=== PATIENT | male | born 1940 | race Caucasian/White ===

== ENCOUNTER 2025-04-22 18:37 | Inpatient (IN) | payer OTHER, SELFPAY ==
[2025-04-22 13:40] VITALS: BP 178/100
[2025-04-22 13:56] LABS: Hematocrit 42.3 % (39.0-52.0); Hemoglobin 15.2 g/dL (13.0-18.0); Mean Corp Hgb Conc. 35.9 g/dL (33.0-37.0); Mean Corpuscular Volume 84.3 fL (80.0-94.0); Nucleated Red Blood Cells % 0 % (-); Platelet Count 225 10^3/uL (130-400); Red Cell Dist. Width 12.2 % (11.5-14.5)
[2025-04-22 14:14] LABS: ALT (SGPT) 24 U/L (0-50); AST (SGOT) 30 U/L (17-59); Albumin 4.6 g/dl (3.5-5.0); Alkaline Phosphatase 80 U/L (38-126); Blood Urea Nitrogen 10 mg/dl (9-20); Calcium 9.4 mg/dl (8.4-10.2); Carbon Dioxide 22 mmol/L (22-30); Chloride 93 mmol/L (98-107); Glucose 131 mg/dl (70-99); Potassium 4.6 mmol/L (3.5-5.1); Sodium 122 mmol/L (135-145); Total Protein 6.9 g/dl (6.3-8.2); eGFR > 60.00
[2025-04-22 15:55] VITALS: BP 151/93
--- NOTE | 2025-04-22 16:45 | ED.GENMED ---
History of Present Illness
General
Chief Complaint: Abnormal Lab Value
Source: patient
Exam Limitations: none
Time Seen by Provider: 04/22/25 16:36
Nursing documentation reviewed up to this point in time: agreed with
History of Present Illness
History of Present Illness:
84-year-old male with history of HLD, appendectomy presents for low Sodium level found by PCP 2 days ago at his annual physical. He had no symptoms, it was repeated and he states it was '124.' Denies nausea, fatigue, muscle spasm headache.
Past History
Past History
ED Past Medical History: Hypercholesterolemia
ED Past Surgical History: Appendectomy
Review of Systems
Review of Systems
Allergies reviewed?: Yes
All Other Systems: ROS reviewed and negative except as documented in HPI and ROS
Phy Exam
Physical Exam
Physical Exam:
GENERAL: No acute distress. A&Ox3.
CONSTITUTIONAL: Afebrile.
EYES: clear, conjunctivae normal
ENMT: moist mucus membranes, Pharynx nl
RESPIRATORY: Regular respirations, nonlabored, lungs clear.
CARDIOVASCULAR: Regular rate and rhythm, no murmurs, no rubs.
GI: Soft, nontender, normal BS
MUSCULOSKELETAL: Moves with ease. Well perfused.
SKIN: Warm, dry, pink
PSYCH: Normal mood and affect. Well kept, interactive and appropriate
NEUROLOGIC: Awake, alert and oriented. No focal neurological deficits
Course
Orders/Labs/Results
Orders:
Orders
04/22/25 13:42
Electrocardiogram (*1) Urgent
Reason for Study: Chest Pain
EKG- Treatment ONCE
04/22/25 13:49
Complete Blood Count/With Diff Urgent
Comprehensive Metabolic Panel Urgent
Serum Osmolality Urgent
Comment: ADD ON
TSH Urgent
Comment: ADD ON
04/22/25 14:55
Urine Osmolality Random [Osmolality, Random Urine] Urgent
Date Specimen was Collected: 04/22/25
Time Specimen was Collected: 13:43
Urine Sodium Urgent
Date Specimen was Collected: 04/22/25
Time Specimen was Collected: 13:43
04/22/25 Dinner
Regular
At Your Request: Full Participation
Fluid Restriction: 1200 mL/day (40 oz)
04/22/25 16:44
Add On- LAB Urgent
Tests Added?: serum osmolality, TSH
04/22/25 16:59
NEPHROLOGY CONSULT Urgent
Consulting Provider: Emeka Fontana V.
Was physician already notified: Yes
Reason for consult: Hyponatremia
04/22/25 17:35
Admit/Transfer Patient As Directed
Co-Sign Provider:
Level of Care: Inpatient admission
Assign to:: Telemetry
Physician / Group: pola holley
Diagnosis: acute hyponatremia asympotmacic, etoh use disorder
Reason for Telemetry: Arrhythmia
Date to Stop Telemetry: 04/25/25
Time to Stop Telemetry: 11:00
Reason for Hospitalization: acute hyponatremia asympotmacic, etoh use disorder
Expected length of stay greater than two midnights?: Yes
ELOS- Estimated Length of Stay in days: 3
I certify the patient meets the requirements for IP care: Yes
Code Status As Directed
Resuscitation Status: Full Code
04/22/25 17:37
PRN Pain Medication Management As Directed
May give lesser potent ordered pain med per pt: Yes
preference::
Protocol:: Medication orders for pain may be administered in a
manner that supports deferring to patient preference
when the pt is:
- Requesting an ordered lesser potent pain medication.
Least to most potent pain medications are defined
as: acetaminophen < NSAID < tramadol < opioids
(morphine, oxycodone, hydromorphone).
- Requesting a lesser dose of the same medication IF
ORDERED.
- Requesting a less intrusive route of administration
if both routes are prescribed by the provider (PO <
IV).
04/22/25 18:54
0.9% Sodium Chloride [Nss (Preservative Free)] See Protocol IV PRN PRN
Bisacodyl [Dulcolax] 10 mg RECTAL U00TABH PRN
Docusate W/Senna [Senokot-S] 1 tablet PO BIDPRN PRN
Enoxaparin Sodium [Lovenox] 40 mg SC QPM
FOLic ACID [Folvite] 1 mg 0.9% Sodium Chloride 50 ml [Nss] 50 ml IV DAILYPRN
Lorazepam [Ativan] 1 mg IV Q1HPRN PRN
Lorazepam [Ativan] 1 mg PO Q2HPRN PRN
Lorazepam [Ativan] 2 mg IV Q1HPRN PRN
Polyethylene Glycol Powder [Miralax] 17 grams PO DAILYPRN PRN
04/22/25 18:54
Case Management Consult Once
Case Management Consult: Other
Comment: Substance abuse counseling
DIETARY IP CONSULT Routine
Reason for Consult: Nutrition support, possible refeeding guidelines
Urinalysis Routine
Urine Drug Abuse Screen Routine
Activity As Directed
Activity Level: As Tolerated
Intake/ Output As Directed
Frequency: Per unit guidelines
MSAS SCORE As Directed
MSAS Score 0-4: Repeat MSAS every 2 hours until 0-4 for three consecutive assessments, then every 4 hours x 48
hours.
MSAS Score 5-7: For MILD withdrawl symptoms. Repeat MSAS and RASS every 2 hours
MSAS Score 8-11: For MODERATE withdrawal symptoms. Repeat MSAS and RASS every 1 hour. Consider ICU or IMU
level of care.
MSAS Score > 11: For SEVERE withdrawal symptoms. Repeat MSAS and RASS every 1 hour. Notify provider, consider
ICU level of care.
MSAS Additional Instructions: If no improvement or no decrease in score from severe to moderate within 12
hours, consult psychiatry
MSAS Notify Provider: Notify provider if patient requires more than 10 mg of Lorazepam in eight hour period.
Vital Signs As Directed
Frequency: Per unit guidelines
Weight As Directed
Frequency: Daily
Pt Eval And Treat Routine
Activity Level: As Tolerated
DX Deep Vein Thrombosis Video Routine
04/22/25 20:07
PTT Urgent
Prothrombin Time Urgent
04/22/25 20:25
Alcohol Urgent
B-Hydroxybutyrate Urgent
GGTP Urgent
Magnesium Urgent
Phosphorus Urgent
04/23/25 00:00
Thiamine Injection 200 mg IV Q8
04/23/25 06:00
Basic Metabolic Panel IN AM
Comprehensive Metabolic Panel IN AM
04/23/25 08:00
Atorvastatin [Lipitor] 20 mg PO DAILY
FOLic ACID [Folvite] 1 mg PO DAILY
Hydrochlorothiazide [Oretic] 12.5 mg PO DAILY
Lisinopril [Zestril] 20 mg PO DAILY
04/24/25 06:00
Basic Metabolic Panel IN AM
Comprehensive Metabolic Panel IN AM
04/25/25 06:00
Basic Metabolic Panel IN AM
Comprehensive Metabolic Panel IN AM
04/25/25 11:00
DC Protocol for Telemetry ONCE
04/25/25 20:00
Thiamine HCl [Vitamin B1] 100 mg PO BID
Abnormal Lab Results
04/22/25 04/22/25
13:49 14:55
Absolute Lymphs (auto) 1.1 L 10^3/uL
(1.2-3.4)
Absolute Monos (auto) 0.8 H 10^3/uL
(0.1-0.6)
Lymphocytes % 14.1 L %
(20.5-51.1)
Monocytes % 10.1 H %
(1.7-9.3)
Sodium 122 L mmol/L
(135-145)
Chloride 93 L mmol/L
(98-107)
Glucose 131 H mg/dl
(70-99)
Serum Osmolality 261 L mOsm/kg
(275-300)
Urine Sodium 127 H mmol/L
(30-90)
04/22/25 13:49
04/22/25 13:49
Vital Signs
Initial and Last Documented VS:
Initial Vital Signs
Temp Pulse Resp BP Pulse Ox
97.7 F 91 16 178/100 97
04/22/25 13:40 04/22/25 13:40 04/22/25 13:40 04/22/25 13:40 04/22/25 13:40
Last Documented Vital Signs
Temp Pulse Resp BP Pulse Ox
98.8 F 78 12 159/90 99
04/22/25 23:00 04/22/25 23:00 04/22/25 23:00 04/22/25 23:00 04/22/25 23:00
MDM/Problems Addressed
MDM/Problems Addressed:
84-year-old male with history of HLD, appendectomy presents for low Sodium level found by PCP 2 days ago at his annual physical. He had no symptoms, it was repeated and he states it was '124.' Denies nausea, fatigue, muscle spasm headache.
CBC normal
Sodium 122, chloride 93 otherwise normal.
Urine osmolality is normal at 413. Urine 70 mL 127
Hospitalist and Nephrology notified of admission.
*Pulse Oximetry
SaO2: 98
Oxygen Mode of Delivery: Room air
Patient hypoxic: no
*EKG
EKG Intrepretation Date: 04/22/25
Interpretation: abnormal
Heart Rate: 104
Rate: tachycardiac
Rhythm: sinus
[place]: normal axis
Interval: normal interval
QRS Pattern: normal QRS
Ischemia: no ischemia
*Critical Care Note
Total Time (30-74mins, 75-104mins- exclusive of procedures): Not Applicable
ED Attending Note
-
Portions of this chart may have been created with voice recognition software.� Occasional wrong word or��sound alike� substitutions may have occurred due to the inherent limitations of voice recognition software.
Discharge Plan
Departure
Patient Disposition: Admit
Date of Disposition: 04/22/25
Time of Disposition: 17:04
Presentation/result/management discussed w/ accepting MD/DO: Hospitalist
Condition: Good
Discharge Problem:
Acute hyponatremia
Interventions
Interventions:
*General Assessment Last Done: 04/22/25 17:24
*Neglect/Abuse Screening Last Done: 04/22/25 13:40
*ED COVID-19 Vaccine History Last Done: 04/22/25 17:24
*ED Influenza Vaccine History Last Done: 04/22/25 17:24
[facility] Risk Assessment Tool Last Done: 04/22/25 17:24
*Risk Screen - Suicide (C-SSRS) Last Done: 04/22/25 13:40
*Nursing Disposition Last Done: 04/22/25 18:58
Discharge Date and Time
Discharge Date/Time: 04/22/25 18:59
--- NOTE | 2025-04-22 17:08 | HPS.HSE ---
Family Physician
-
Family Physician:
Chief Complaint
-
abdnormal sodium
History of Present Illness
84-year-old male who was at his PCP 2 days ago for annual physical was noted to have lab work with sodium of 124. Currently has sodium of 122 in ER. He denies headache, fatigue, blurred vision, nausea, vomiting, diarrhea, abdominal pain, chest
pain, palpitations, cough, shortness of breath, loss. The patient reports normally drinking 40 ounces of water daily however over the past days has doubled his intake to approximately 80 ounces a day. He also drinks daily wine 15 to 20 ounces and
3 to 4 glasses or approximately 7 ounces of scotch with water with last reading yesterday evening 04/21/2025. He states had increased consumption over the past 4 to 5 months due to the holidays and being 1 year. He has past medical history
of hyperlipidemia former cigar smoker stopped age 64, HTN.
Medical History
Past Medical History
Past Medical History: Reports Hypercholesterolemia and Other
Additional Past Medical History:
HTN
hyperlipidemia
former cigar smoker stopped age 64
alcohol use disorder
Past Surgical History: Reports Appendectomy
Social History
Tobacco: Former Smoker (stopped cigars age 64)
Alcohol: Daily (152-20 oz wine (3-4 glasses day ) or 7.5 ounces daily scotch)
Personal: (1 year)
Living: With Family (son)
Employment: Retired
Family History
Family History: Not pertinent
Allergies / Home Medications
Allergies reflects when Allergies were last updated in [facility].
Home Medications with original date entered in [facility]
Allergy/Medication List:
Allergies
Allergy/AdvReac Type Severity Reaction Status Date / Time
hayfever Allergy nasal Uncoded 04/22/25 13:39
symptoms
Home Medications
ascorbic acid (vitamin C) 250 mg tablet (Vitamin C) 250 mg PO DAILY 04/22/25
atorvastatin 20 mg tablet (Lipitor) 20 mg PO DAILY 04/22/25
glucosamine sulf dipot chlr,msm,chond 550 mg-C 30 mg-alexander 1 mg capsule (Glucosamine Chondroitin) 1 cap PO DAILY Supplement 04/22/25
hydrochlorothiazide 12.5 mg tablet 12.5 mg PO DAILY 04/22/25
lisinopril 20 mg tablet 20 mg PO DAILY 04/22/25
magnesium hydroxide 400 mg/5 mL oral suspension (Milk of Magnesia) 2,400 mg PO DAILYPRN PRN constipation 04/22/25
Review of Systems
-
History Source: Patient
A 12 point ROS was completed and negative except as noted: Yes
Constitutional: Denies Fever, Weight Loss, Fatigue or Chills
EENT: Denies Sore Throat or Runny Nose
Respiratory: Denies Cough or Trouble Breathing
Cardiac: Denies Chest Pain, Diaphoresis, Palpitations or Syncope
Abdomen/GI: Denies Abdominal Pain, Nausea, Vomiting or Diarrhea
: Denies Dysuria, Frequency, Flank Pain or Incontinence
Musculoskeletal: Denies Joint Pain or Edema
Skin: Denies Itching or Rash
Neurological: Denies Dizzy, Headache or Weakness
Endocrine: Reports No Symptoms
Hematologic/Lymphatic: Reports No Symptoms
Psych: Reports Calm
Physical Exam
Vital Signs
Vital Signs
Temp Pulse Resp BP Pulse Ox
97.9 F 82 16 151/93 98
04/22/25 15:55 04/22/25 15:55 04/22/25 13:40 04/22/25 15:55 04/22/25 16:49
Physical Exam
General: Comfortable and Conversant; No Pain, Fever or Chills
HEENT: NormoCephalic, Anicteric, Moist mucous membranes, PERRLA, [place] Conjunctivae and No Ptosis
Respiratory: Clear; No Wheezes, Rales or Rhonchi
Cardiac: S1/S2, Regular Rhythm and Peripheral Edema (trace ankle edema ); No Murmur, Rub or Gallop
Breast: Deferred by me
GI: Soft, Non Tender, Non Distended, Normal Bowel Sounds and No Hepatosplenomegaly
Rectal: Deferred by Provider
Musculoskeletal: No Clubbing, No Cyanosis, Edema, Left Lower Extremity (trace lower legs) and Edema, Right Lower Extremity (trace lower legs); No Edema, Left Upper Extremity or Edema, Right Upper Extremity
Skin: Warm and Dry; No Rash
Neuro: AO x 3, No Motor Deficits, Nonfocal/grossly intact, Cranial Nerves Intact and No Sensory Deficits; No Slurred Speech, Facial Droop or Tremors
Psych: Calm
Laboratory Results
-
04/22/25 13:49
04/22/25 13:49
Laboratory Results
Total Bilirubin 0.8 mg/dl (0.2-1.3) 04/22/25 13:49
AST 30 U/L (17-59) 04/22/25 13:49
ALT 24 U/L (0-50) 04/22/25 13:49
Alkaline Phosphatase 80 U/L (38-126) 04/22/25 13:49
Impression/Plan
-
Impression/plan:
Admit to TELE
#Acute hyponatremia�asymptomatic
- NA 122
- Check urine Osmo, urine NA, serum Osmo, TSH free T4 reflex
- Consult nephrology
- Fluid restrict
- Follow BMP
EKG: Sinus tach with PVCs 104 bpm, QTc B426 MS
Alcohol use disorder
- Drinks 15 to 20 ounces of daily wine and 3 to 4 glasses a day for 7 ounces of scotch daily
Reports over the past 4 to 5 months has doubled his intake due to being for 1 year and coming up around holidays
- Last drink was yesterday scotch evening 04/21/2025
-MSAS screen with protocol
- IV thiamine, IV folate
HTN
cont hctz 12.5 mg daily
cont lisinopril 20 mg daily
#HLD
cont lipitor 20 mg hs
#
constipation
cont laxatives prn
DVT prophylaxis
Subcu Lovenox
Full code
--- NOTE | 2025-04-22 17:44 | W.PN.UPDATE ---
Update Note
Progress Note Update
This note serves as an addendum to the H&P by fire adjuster NORRIS�
Naima DIETERICK
HPI�
84M - for 1 yr, Former smoker, SHXZ suggestive of ETOH use disorder
PHX of HLD
Seen at ER
- at PCP 2 days ago for annual physical was noted to have Na 124.
- Currently Na 122 in ER.
- reports normally drinking 40 ounces of water daily - however over the past days has doubled his intake to approximately 80 ounces a day
- also drinks daily wine 15 to 20 ounces and 3 to 4 glasses or approximately 7 ounces of scotch with water with last drinking yesterday evening 04/21/2025.
- increased ETOH consumption over the past 4 to 5 months due to the holidays and being 1 year.
ROS
denies headache, fatigue, blurred vision, nausea, vomiting, diarrhea, abdominal pain, chest pain, palpitations, cough, shortness of breath, loss. T
Relevant VS
Temp Pulse Resp BP Pulse Ox
97.9 F 98 14 151/93 100
04/22/25 15:55 04/22/25 17:26 04/22/25 17:26 04/22/25 15:55 04/22/25 17:26
PE
Gen: NAD , Non toxic
HEENT: anicteric, moist OM
Neck: supple
Lungs: CTA. No wheeze
Cor: RRR S1S2
Abdomen:�soft , NT, NG , NRT
ROUNDER HAND: AAO3, NFND
MS: no edema
Psych: appropriate
Relevant Data
04/22/25
13:49
WBC 7.5
Hgb 15.2
Plt Count 225
Sodium 122 L
Potassium 4.6
Chloride 93 L
Creatinine 0.8
eGFR > 60.00
Glucose 131 H
Serum Osmolality 261 L
TSH Pending
EKG: Sinus tach with PVCs 104 bpm, QTc B426 MS
NO Prior hospitalist admission:
ASSESSMENT & PLAN
Acute hypotonic hyponatremia � asymptomatic
DDX: Water excess, Potomania
- Low Ur Osm
- NA 122
- urine Osm, urine NA, serum Osmo, TSH free T4 reflex
- Fluid restrict 1L
- Follow BMP in AM
- Renal consult
ETOH use disorder
- Daily 15 to 20 ounces of wine plus 3 to 4 glasses of 7 ounces of scotch daily
- over the past 4 to 5 months has doubled his intake due to being for 1 year and coming up around holidays
- Last drink was yesterday scotch evening 04/21/2025
- MSAS screen with protocol
- IV thiamine, IV folate
HLD
- on [facility] [employer] lipitor 20 mg hs
DVT Px: LMWH
Code: Full code
IP TLM
[2025-04-22 17:59] LABS: TSH 1.09 uIU/ml (0.47-4.68)
[2025-04-22 19:00] VITALS: BP 112/58
--- NOTE | 2025-04-22 19:30 | PTCARENOTE ---
Pt arrived from ED during shift change by stretcher. Able to ambulate into room. VSS. A&O x 3. Call whitt within reach. Will continue to monitor.
[2025-04-22 19:43] VITALS: BMI 23.7
[2025-04-22] MEDS: LOVENOX 40 MG SC (19:47)
--- NOTE | 2025-04-22 19:47 | PTCARENOTE ---
Rn coordinator of evaluation- Patient's admission questions completed remotely. Patient indicated that he drinks almost daily scotch. Patient denies previous alcohol withdrawl symptoms.
[2025-04-22 20:42] LABS: INR 0.99; PT 12.9 Sec (11.4-14.6)
[2025-04-22 20:43] LABS: APTT 23.7 Sec (23.4-35.0)
[2025-04-22 21:01] LABS: GGTP 47 U/L (15-73); Magnesium 2.0 mg/dl (1.6-2.3)
--- NOTE | 2025-04-22 22:52 | PTCARENOTE ---
Pt very anxious and restless, pacing around room and hallway. Pt states that he is agitated and having a hard time falling asleep. House provider TT. Order for melatonin received. See MAR.
[2025-04-22 23:00] VITALS: BP 159/90
[2025-04-22] MEDS: ATIVAN 1 MG PO (23:03)
[2025-04-22] MEDS: THIAMINE INJECTION 200 MG IV (23:03)
[2025-04-22] MEDS: MELATONIN 5 MG PO (23:03)
[2025-04-23] VITALS (7 sets, daily range): BP systolic 121–168; BP diastolic 66–92; PULSE 83; O2SAT 98; BMI 23.7
[2025-04-23 07:22] LABS: ALT (SGPT) 22 U/L (0-50); AST (SGOT) 28 U/L (17-59); Albumin 3.9 g/dl (3.5-5.0); Alkaline Phosphatase 79 U/L (38-126); Blood Urea Nitrogen 10 mg/dl (9-20); Calcium 9.1 mg/dl (8.4-10.2); Carbon Dioxide 22 mmol/L (22-30); Chloride 92 mmol/L (98-107); Estimated Creatinine Clearance 65 ml/min; Glucose 92 mg/dl (70-99); Potassium 4.1 mmol/L (3.5-5.1); Sodium 121 mmol/L (135-145); Total Protein 5.9 g/dl (6.3-8.2); eGFR > 60.00
[2025-04-23] MEDS: ORETIC 12.5 MG PO (08:15)
[2025-04-23] MEDS: LIPITOR 20 MG PO (08:15)
[2025-04-23] MEDS: FOLVITE 1 MG PO (08:15)
[2025-04-23] MEDS: THIAMINE INJECTION 200 MG IV ×3 (08:15→23:41)
[2025-04-23] MEDS: ZESTRIL 20 MG PO (08:15)
[2025-04-23] MEDS: SODIUM CHLORIDE 3% 250 IV (10:12)
--- NOTE | 2025-04-23 11:58 | W.CON.NEPH ---
Consultation
-
Date/Time Consultation Requested: 04/22/2025 at 1700
Date/Time Consultation Performed: 04/23/2025 at 9:30 AM
Requesting Provider: Darci Dixon
Performing Provider: Dr. Lomax
Reason for Consultation: Hyponatremia
Medical History
-
Chief Complaint: Hyponatremia
History of Present Illness:
84-year-old male who was at his PCP 2 days ago for annual physical was noted to have lab work with sodium of 124. sodium of 122 in ER. normally drinking 40 ounces of water daily however over the past days has doubled his intake to approximately
80 ounces a day. He also drinks daily wine 15 to 20 ounces and 3 to 4 glasses or approximately 7 ounces of scotch with water He states had increased consumption over the past 4 to 5 months due to the holidays and being 1 year per records.
he has past medical history of hyperlipidemia former cigar smoker stopped age 64, HTN.
Renal consult for hyponatremia was put on fluid restriction overnight with serum sodium lower at 121 with elevated urine sodium and urine osmolality on hydrochlorothiazide she has been on for about 2 years
Denies NSAID or chronic pain
Past Medical History
Hypertension hyperlipidemia moderate alcohol
Social History
Moderate alcohol no tobacco
Tobacco: Non-Smoker
Alcohol: Daily
Family History
Family History: Not Pertinent
Allergies / Home Medications
Allergy/AdvReac Type Severity Reaction Status Date / Time
hayfever Allergy nasal Uncoded 04/22/25 13:39
symptoms
�Medication �Instructions �Recorded �Confirmed �Type
ascorbic acid (vitamin C) 250 mg 250 mg PO DAILY 04/22/25 04/22/25 History
tablet (Vitamin C)
atorvastatin 20 mg tablet (Lipitor) 20 mg PO DAILY 04/22/25 04/22/25 History
glucosamine sulf dipot 1 cap PO DAILY Supplement 04/22/25 04/22/25 History
chlr,msm,chond 550 mg-C 30 mg-alexander
1 mg capsule (Glucosamine
Chondroitin)
hydrochlorothiazide 12.5 mg tablet 12.5 mg PO DAILY 04/22/25 04/22/25 History
lisinopril 20 mg tablet 20 mg PO DAILY 04/22/25 04/22/25 History
magnesium hydroxide 400 mg/5 mL 2,400 mg PO DAILYPRN PRN 04/22/25 04/22/25 History
oral suspension (Milk of Magnesia) constipation
Review of Systems
-
States he has difficulty urinating
Physical Exam
Vital Signs
Vital Signs
Temp Pulse Resp BP Pulse Ox
98.1 F 81 16 130/74 98
04/23/25 11:14 04/23/25 11:14 04/23/25 11:14 04/23/25 11:14 04/23/25 11:14
Lab Results
WBC 7.5 10^3/uL (4.8-10.8) 04/22/25 13:49
RBC 5.02 10^6/uL (4.70-6.10) 04/22/25 13:49
Hgb 15.2 g/dL (13.0-18.0) 04/22/25 13:49
Hct 42.3 % (39.0-52.0) 04/22/25 13:49
Plt Count 225 10^3/uL (130-400) 04/22/25 13:49
Sodium 121 mmol/L (135-145) L 04/23/25 06:19
Potassium 4.1 mmol/L (3.5-5.1) 04/23/25 06:19
Chloride 92 mmol/L (98-107) L 04/23/25 06:19
Carbon Dioxide 22 mmol/L (22-30) 04/23/25 06:19
BUN 10 mg/dl (9-20) 04/23/25 06:19
Creatinine 0.8 mg/dL (0.7-1.3) 04/23/25 06:19
eGFR > 60.00 04/23/25 06:19
Glucose 92 mg/dl (70-99) 04/23/25 06:19
Calcium 9.1 mg/dl (8.4-10.2) 04/23/25 06:19
Phosphorus 3.1 mg/dl (2.5-4.5) 04/22/25 20:25
Albumin 3.9 g/dl (3.5-5.0) 04/23/25 06:19
Physical Exam
General no acute distress
HEENT no cephalic atraumatic extraocular muscle intact no scleral icterus no JVD neck supple
lungs clear to auscultation bilateral
heart regular S1-S2 positive
abdomen soft nontender positive bowel sounds
extremities no edema pulses present bilateral
Neurologically nonfocal alert and oriented x 3
Skin no lesions no abrasions no petechiae
Psych normal affect no bizarre behavior
Data Reviewed
-
Labs: Labs Reviewed by me, Discussed with Physician, Discussed with Nurse and Discussed with Patient
Assessment/Plan
-
84-year-old male who was at his PCP 2 days ago for annual physical was noted to have lab work with sodium of 124. sodium of 122 in ER. normally drinking 40 ounces of water daily however over the past days has doubled his intake to approximately
80 ounces a day. He also drinks daily wine 15 to 20 ounces and 3 to 4 glasses or approximately 7 ounces of scotch with water He states had increased consumption over the past 4 to 5 months due to the holidays and being 1 year per records.
he has past medical history of hyperlipidemia former cigar smoker stopped age 64, HTN.
Renal consult for hyponatremia was put on fluid restriction overnight with serum sodium lower at 121 with elevated urine sodium and urine osmolality on hydrochlorothiazide she has been on for about 2 years
Denies NSAID or chronic pain
Impression
Hyponatremia with elevated urine sodium and osmolality not consistent with alcohol use or excessive water but more consistent with SIADH and hydrochlorothiazide
Hyperlipidemia
Hypertension
Alcohol use
Plan
Sodium down to 121 with fluid restriction will start 3% saline and repeat labs this afternoon
Discontinue hydrochlorothiazide indefinitely
Check bladder scan
Check TSH and cortisol
--- NOTE | 2025-04-23 12:06 | PTOTSP ---
Pt is able to ambulate in hallway with steady gait. No acute PT needs were identified. Pt plans to play tennis on Sunday. PT will sign off.
[2025-04-23 12:24] LABS: Urine Character Clear (Clear)
--- NOTE | 2025-04-23 13:50 | W.PN.HOSP.TC ---
Today's Communication/Plan
-
See plan
Assessment / Plan
Assessment / Plan
Impression/plan
Acute hypotonic hyponatremia.
Compensated volume status/isovolemic
Normal TSH
Cortisol pending
Chest x-ray without pulmonary process
Elevated urine sodium and urine osmolality likely consistent with high ADH state with effect of thiazide diuretics
Suspect some chronicity. Asymptomatic upon presentation
HCTZ discontinued
Continue 3%
Follow serial BMP
Nephrology input appreciated.
Alcohol use disorder with concern for withdrawal
Monitor closely
MSAS
Thiamine
Essential hypertension. Continue lisinopril. HCTZ discontinued.
Monitor blood pressure.
Anticipated Discharge: 24 - 48 hours
Subjective/Interval History
-
Date of Service: April 23, 2025
Objective Data
-
Labs:
Laboratory Results
04/23/25 04/23/25 04/23/25
06:19 13:44 18:00
Sodium 121 L Pending Pending
Potassium 4.1 Pending Pending
Chloride 92 L Pending Pending
Carbon Dioxide 22 Pending Pending
BUN 10 Pending Pending
Creatinine 0.8 Pending Pending
Glucose 92 Pending Pending
Calcium 9.1 Pending Pending
Total Bilirubin 0.9
AST 28
ALT 22
Alkaline Phosphatase 79
Vital Signs:
Vital Signs
Temp Pulse Resp BP Pulse Ox
98.1 F 81 16 130/74 98
04/23/25 11:14 04/23/25 11:14 04/23/25 11:14 04/23/25 11:14 04/23/25 11:14
I&O
04/22/25 04/23/25 04/24/25
06:59 06:59 06:59
Intake Total 480 / 480
Balance 480 / 480
Physical Exam
-
General: Well Developed and No Apparent Distress
HEENT: Normocephalic, Atraumatic and Moist Mucous Membranes
Respiratory: Clear to Auscultation
Cardiac: Regular Rhythm and S1/S2; Negative Murmur, Rub or Gallop
GI: Soft, Nontender, Nondistended and Normal Bowel Sounds; Negative Organomegaly
Rectal: Deferred by Provider
Musculoskeletal: No Clubbing, No Cyanosis and No Edema
Skin: Negative Rash
Neuro: Nonfocal/Grossly Intact
--- NOTE | 2025-04-23 13:52 | CM ---
patient seen at bedside
IA completed
Dx: hyponatremia, etoh use
CM consult for substance abuse-offered BCARES, patient declines
CM consult for advanced directives, information given to patient
Lives alone in a multi-story home, 3 [address], 13 steps to bed/bath
PLOF: Independent, drives, plays tennis on weekends
Denies DME
Denies hx VN/Rehab
pcp: Devendra Soto
pharmacy: [facility] at [facility]
PLAN: home, no needs anticipated when stable
[2025-04-23 14:29] LABS: Blood Urea Nitrogen 10 mg/dl (9-20); Calcium 9.6 mg/dl (8.4-10.2); Carbon Dioxide 26 mmol/L (22-30); Chloride 91 mmol/L (98-107); Estimated Creatinine Clearance 58 ml/min; Glucose 87 mg/dl (70-99); Potassium 4.7 mmol/L (3.5-5.1); Sodium 123 mmol/L (135-145); eGFR > 60.00
[2025-04-23] MEDS: LOVENOX 40 MG SC (17:20)
[2025-04-23 19:36] LABS: Blood Urea Nitrogen 12 mg/dl (9-20); Calcium 9.6 mg/dl (8.4-10.2); Carbon Dioxide 26 mmol/L (22-30); Chloride 91 mmol/L (98-107); Estimated Creatinine Clearance 52 ml/min; Glucose 112 mg/dl (70-99); Potassium 4.5 mmol/L (3.5-5.1); Sodium 124 mmol/L (135-145); eGFR > 60.00
[2025-04-23] MEDS: ATIVAN 1 MG PO ×2 (20:08→22:08)
--- NOTE | 2025-04-23 21:51 | W.PN.UPDATE ---
Update Note
Progress Note Update
samsca 15 mg x 1 now for na 124 s/p hypertonic saline. am labs
[2025-04-23] MEDS: SAMSCA 15 MG PO (22:01)
[2025-04-24 03:01] VITALS: BP 123/71
[2025-04-24 05:44] VITALS: BMI 23.0
[2025-04-24 07:24] VITALS: BP 105/60
[2025-04-24 07:28] LABS: ALT (SGPT) 21 U/L (0-50); AST (SGOT) 27 U/L (17-59); Albumin 3.6 g/dl (3.5-5.0); Alkaline Phosphatase 65 U/L (38-126); Blood Urea Nitrogen 13 mg/dl (9-20); Calcium 9.4 mg/dl (8.4-10.2); Carbon Dioxide 22 mmol/L (22-30); Chloride 99 mmol/L (98-107); Estimated Creatinine Clearance 58 ml/min; Glucose 91 mg/dl (70-99); Potassium 4.2 mmol/L (3.5-5.1); Sodium 126 mmol/L (135-145); Total Protein 5.8 g/dl (6.3-8.2); eGFR > 60.00
[2025-04-24 07:55] LABS: Cortisol, Random 12.1 ug/dl; TSH 1.57 uIU/ml (0.47-4.68)
[2025-04-24] MEDS: ZESTRIL 20 MG PO (09:18)
[2025-04-24] MEDS: MIRALAX 17 GRAMS PO (09:18)
[2025-04-24] MEDS: FOLVITE 1 MG PO (09:18)
[2025-04-24] MEDS: THIAMINE INJECTION 200 MG IV ×2 (09:18→17:53)
[2025-04-24] MEDS: LIPITOR 20 MG PO (09:18)
[2025-04-24 10:47] VITALS: BP 110/78
--- NOTE | 2025-04-24 11:50 | W.PN.NEPH.PH ---
Today's Communication / Plan
-
samsca
Assessment/Plan
-
84-year-old male who was at his PCP 2 days ago for annual physical was noted to have lab work with sodium of 124. sodium of 122 in ER. normally drinking 40 ounces of water daily however over the past days has doubled his intake to approximately
80 ounces a day. He also drinks daily wine 15 to 20 ounces and 3 to 4 glasses or approximately 7 ounces of scotch with water He states had increased consumption over the past 4 to 5 months due to the holidays and being 1 year per records.
he has past medical history of hyperlipidemia former cigar smoker stopped age 64, HTN.
Renal consult for hyponatremia was put on fluid restriction overnight with serum sodium lower at 121 with elevated urine sodium and urine osmolality on hydrochlorothiazide she has been on for about 2 years
Denies NSAID or chronic pain
Impression
Hyponatremia with elevated urine sodium and osmolality not consistent with alcohol use or excessive water but more consistent with SIADH and hydrochlorothiazide
Hyperlipidemia
Hypertension
Alcohol use
Plan
samsca again
follow BMP
potential d/c so long as Na > 130
-
-
Date of Service: April 24, 2025
CC / HPI / ROS
-
Chief Complaint:
hyponatremia
History of Present Illness:
Na up to 126 with samsca
BP stable
Review of Systems:
no CP/SOB
Labs
-
Labs:
WBC 7.5 10^3/uL (4.8-10.8) 04/22/25 13:49
RBC 5.02 10^6/uL (4.70-6.10) 04/22/25 13:49
Hgb 15.2 g/dL (13.0-18.0) 04/22/25 13:49
Hct 42.3 % (39.0-52.0) 04/22/25 13:49
Plt Count 225 10^3/uL (130-400) 04/22/25 13:49
Sodium 126 mmol/L (135-145) L 04/24/25 06:33
Potassium 4.2 mmol/L (3.5-5.1) 04/24/25 06:33
Chloride 99 mmol/L (98-107) 04/24/25 06:33
Carbon Dioxide 22 mmol/L (22-30) 04/24/25 06:33
BUN 13 mg/dl (9-20) 04/24/25 06:33
Creatinine 0.9 mg/dL (0.7-1.3) 04/24/25 06:33
eGFR > 60.00 04/24/25 06:33
Glucose 91 mg/dl (70-99) 04/24/25 06:33
Calcium 9.4 mg/dl (8.4-10.2) 04/24/25 06:33
Phosphorus 3.1 mg/dl (2.5-4.5) 04/22/25 20:25
Albumin 3.6 g/dl (3.5-5.0) 04/24/25 06:33
Physical Exam
-
Vital Signs:
Vital Signs
Temp Pulse Resp BP Pulse Ox
97.3 F 109 16 110/78 98
04/24/25 10:47 04/24/25 10:47 04/24/25 10:47 04/24/25 10:47 04/24/25 10:47
Cardiovascular:: Regular rate and rhythm
Respiratory:: Bilateral: CTA
Lung Excursion:: Normal
Abdomen:: Nontender and Soft
Bowel Sounds:: Normal
Extremity Edema:: None: Bilateral:
--- NOTE | 2025-04-24 12:53 | CM ---
patient chart reviewed
corya
Na 126
PLAN: Home, no needs anticipated when stable
son to transport
[2025-04-24] MEDS: SAMSCA 15 MG PO (13:14)
[2025-04-24 14:57] VITALS: BP 109/70
--- NOTE | 2025-04-24 16:49 | W.PN.HOSP.TC ---
Today's Communication/Plan
-
Samsca
BMP in a.m.
No evidence for alcohol withdrawal
Assessment / Plan
Assessment / Plan
Impression/plan
Acute hypotonic hyponatremia.
Compensated volume status/isovolemic
Normal TSH
Cortisol within normal limits
Chest x-ray without pulmonary process
Elevated urine sodium and urine osmolality likely consistent with high ADH state with effect of thiazide diuretics
Suspect some chronicity. Asymptomatic upon presentation
HCTZ discontinued
Status post 3%
Status post Samsca on 04/24
Sodium improving at 126
Nephrology input appreciated.
Alcohol use disorder with concern for withdrawal
Monitor closely
MSAS
Thiamine
Essential hypertension. Continue lisinopril. HCTZ discontinued.
Monitor blood pressure.
Anticipated Discharge: 24 - 48 hours
Subjective/Interval History
-
Date of Service: April 24, 2025
Objective Data
-
Labs:
Laboratory Results
04/24/25
06:33
Sodium 126 L
Potassium 4.2
Chloride 99
Carbon Dioxide 22
BUN 13
Creatinine 0.9
Glucose 91
Calcium 9.4
Total Bilirubin 1.0
AST 27
ALT 21
Alkaline Phosphatase 65
Vital Signs:
Vital Signs
Temp Pulse Resp BP Pulse Ox
97.4 F 77 16 109/70 99
04/24/25 14:57 04/24/25 14:57 04/24/25 14:57 04/24/25 14:57 04/24/25 14:57
I&O
04/23/25 04/24/25 04/25/25
06:59 06:59 06:59
Intake Total 480 / 480 1620 / 1620
Balance 480 / 480 1620 / 1620
Physical Exam
-
General: Well Developed and No Apparent Distress
HEENT: Normocephalic, Atraumatic and Moist Mucous Membranes
Respiratory: Clear to Auscultation
Cardiac: Regular Rhythm and S1/S2; Negative Murmur, Rub or Gallop
GI: Soft, Nontender, Nondistended and Normal Bowel Sounds; Negative Organomegaly
Rectal: Deferred by Provider
Musculoskeletal: No Clubbing, No Cyanosis and No Edema
Skin: Negative Rash
Neuro: Nonfocal/Grossly Intact
[2025-04-24] MEDS: LOVENOX 40 MG SC (17:53)
[2025-04-24 19:00] VITALS: BP 113/62
[2025-04-24 23:27] VITALS: BP 123/79
[2025-04-25] MEDS: THIAMINE INJECTION 200 MG IV ×2 (01:06→08:23)
[2025-04-25 03:00] VITALS: BP 128/75
[2025-04-25 06:00] VITALS: BMI 22.6
[2025-04-25 07:09] VITALS: BP 148/84
[2025-04-25] MEDS: FOLVITE 1 MG PO (08:23)
[2025-04-25] MEDS: ZESTRIL 20 MG PO (08:23)
[2025-04-25] MEDS: MIRALAX 17 GRAMS PO (08:23)
[2025-04-25] MEDS: LIPITOR 20 MG PO (08:23)
[2025-04-25 10:20] LABS: Blood Urea Nitrogen 18 mg/dl (9-20); Calcium 10.2 mg/dl (8.4-10.2); Carbon Dioxide 25 mmol/L (22-30); Chloride 99 mmol/L (98-107); Estimated Creatinine Clearance 47 ml/min; Glucose 93 mg/dl (70-99); Potassium 4.8 mmol/L (3.5-5.1); Sodium 133 mmol/L (135-145); eGFR > 60.00
[2025-04-25 11:14] VITALS: BP 124/73
--- NOTE | 2025-04-25 11:35 | W.PN.HOSP.TC ---
Today's Communication/Plan
-
Continue monitor sodium. Discharge planning
Assessment / Plan
Assessment / Plan
Physical exam:
General: Well Developed, Well Nourished and No Apparent Distress
HEENT: Normocephalic, Atraumatic and Moist Mucous Membranes
Respiratory: Clear to Auscultation; Negative Wheezes, Rales or Rhonchi
Cardiac: Regular Rhythm and S1/S2
GI: Soft, Nontender and Nondistended
Musculoskeletal: No Clubbing, No Cyanosis and No Edema
Neuro: Awake, Alert and Oriented
Psych: Calm
Impression/plan
Acute hypotonic hyponatremia.
Compensated volume status/isovolemic
Normal TSH
Cortisol within normal limits
Chest x-ray without pulmonary process
Elevated urine sodium and urine osmolality likely consistent with high ADH state with effect of thiazide diuretics
Suspect some chronicity. Asymptomatic upon presentation
HCTZ discontinued
Status post 3%
Status post Samsca on 04/24
Sodium improving at 133 today
Nephrology input appreciated.
Discussed with manager rn case today on 04/25
Discharge planning once cleared by nephrology
Alcohol use disorder with concern for withdrawal
Monitor closely
MSAS
Thiamine
Essential hypertension. Continue lisinopril. HCTZ discontinued.
Monitor blood pressure.
Anticipated Discharge: Today
Subjective/Interval History
-
Date of Service: April 25, 2025
Patient feels well overall. Ambulating in the room.
Objective Data
-
Labs:
Laboratory Results
04/25/25
07:37
Sodium 133 L
Potassium 4.8
Chloride 99
Carbon Dioxide 25
BUN 18
Creatinine 1.1
Glucose 93
Calcium 10.2
Vital Signs:
Vital Signs
Temp Pulse Resp BP Pulse Ox
98.3 F 74 18 148/84 99
04/25/25 07:09 04/25/25 07:09 04/25/25 07:09 04/25/25 07:09 04/25/25 07:09
I&O
04/24/25 04/25/25 04/26/25
06:59 06:59 06:59
Intake Total 1620 / 1620 1620 / 1620
Balance 1620 / 1620 1620 / 1620
--- NOTE | 2025-04-25 12:41 | W.DCSUMMARY ---
Discharge Summary
Discharge Data
Date of Admission: 04/22/25
Date of Discharge: 04/25/25
-
Pending Results: No
Hospital Course
Patient 84 years old male with history of hypertension, hyperlipidemia, alcohol use disorder came into the hospital with abnormal labs with hyponatremia. Nephrology consulted. Sodium was identified as low as 122. It was felt the etiology of his
hyponatremia was multifactorial likely including hydrochlorothiazide use as well as increased fluid intake and alcohol. We discontinued HCTZ. He was placed on oral fluid restriction. He was given Samsca during this hospital stay. He sodium has
gone up appropriately up to 133 upon discharge. He was given another dose of Samsca upon the day of discharge and will have a follow-up BMP as outpatient within 1 to 2 weeks. Nephrology cleared him for discharge today. Patient advised strict
alcohol cessation. Patient is not interested in alcohol rehab at the moment. He is ambulating well in his room into the hallway and he is hemodynamically stable and neurologically intact. He will be discharged in stable condition today.
Discharge Plan
-
Patient Disposition: Home (Routine Discharge)
Discharge Diagnosis/Procedures: Hyponatremia. Alcohol use disorder. Hypertension.
Diet: Low Cholesterol and Restrict fluids to 64 oz
Activity: As tolerated
Blood Work: Please PCP to order CBC, BMP within 1 week
Referrals:
Devendra Soto PA-C [Family Provider, Family Practice] - in less than 1 week
Chas Fry MD [Active, Nephrology] - in two to four weeks
Prescriptions:
Continued
lisinopril 20 mg Tablet
20 mg PO DAILY
magnesium hydroxide [Milk of Magnesia] 400 mg/5 mL Suspension
2,400 mg PO DAILYPRN PRN (Reason: constipation)
ascorbic acid (vitamin C) [Vitamin C] 250 mg Tablet
250 mg PO DAILY
Glucosamine Chondroitin 550-30-1 mg Capsule
1 cap PO DAILY
atorvastatin [Lipitor] 20 mg Tablet
20 mg PO DAILY
Discontinued
hydrochlorothiazide 12.5 mg Tablet
12.5 mg PO DAILY
Discharge Orders:
Discharge Patient (As Directed); Ordered 04/25/25
Ordered By: Raul Michelle
Discharge Date and Time
Discharge Date/Time: 04/25/25 13:46
Print Language: SWEDISH
--- NOTE | 2025-04-25 13:00 | W.PN.NEPH.PH ---
Today's Communication / Plan
-
samsca
Assessment/Plan
-
84-year-old male who was at his PCP 2 days ago for annual physical was noted to have lab work with sodium of 124. sodium of 122 in ER. normally drinking 40 ounces of water daily however over the past days has doubled his intake to approximately
80 ounces a day. He also drinks daily wine 15 to 20 ounces and 3 to 4 glasses or approximately 7 ounces of scotch with water He states had increased consumption over the past 4 to 5 months due to the holidays and being 1 year per records.
he has past medical history of hyperlipidemia former cigar smoker stopped age 64, HTN.
Renal consult for hyponatremia was put on fluid restriction overnight with serum sodium lower at 121 with elevated urine sodium and urine osmolality on hydrochlorothiazide she has been on for about 2 years
Denies NSAID or chronic pain
Impression
Hyponatremia with elevated urine sodium and osmolality not consistent with alcohol use or excessive water but more consistent with SIADH and hydrochlorothiazide
Hyperlipidemia
Hypertension
Alcohol use
Plan
samsca again
follow BMP
for dc
-
-
Date of Service: April 25, 2025
CC / HPI / ROS
-
Chief Complaint:
hyponatremia
History of Present Illness:
Na up to 133 with samsca
BP stable
Review of Systems:
no CP/SOB
Labs
-
Labs:
WBC 7.5 10^3/uL (4.8-10.8) 04/22/25 13:49
RBC 5.02 10^6/uL (4.70-6.10) 04/22/25 13:49
Hgb 15.2 g/dL (13.0-18.0) 04/22/25 13:49
Hct 42.3 % (39.0-52.0) 04/22/25 13:49
Plt Count 225 10^3/uL (130-400) 04/22/25 13:49
Sodium 133 mmol/L (135-145) L 04/25/25 07:37
Potassium 4.8 mmol/L (3.5-5.1) 04/25/25 07:37
Chloride 99 mmol/L (98-107) 04/25/25 07:37
Carbon Dioxide 25 mmol/L (22-30) 04/25/25 07:37
BUN 18 mg/dl (9-20) 04/25/25 07:37
Creatinine 1.1 mg/dL (0.7-1.3) 04/25/25 07:37
eGFR > 60.00 04/25/25 07:37
Glucose 93 mg/dl (70-99) 04/25/25 07:37
Calcium 10.2 mg/dl (8.4-10.2) 04/25/25 07:37
Phosphorus 3.1 mg/dl (2.5-4.5) 04/22/25 20:25
Albumin 3.6 g/dl (3.5-5.0) 04/24/25 06:33
Physical Exam
-
Vital Signs:
Vital Signs
Temp Pulse Resp BP Pulse Ox
98.1 F 73 19 124/73 99
04/25/25 11:14 04/25/25 11:14 04/25/25 11:14 04/25/25 11:14 04/25/25 11:14
Cardiovascular:: Regular rate and rhythm
Respiratory:: Bilateral: Coarse
Lung Excursion:: Normal
Abdomen:: Nontender and Soft
Bowel Sounds:: Normal
Extremity Edema:: None: Bilateral:
--- NOTE | 2025-04-25 13:14 | CM ---
patient discharge today
IMM explained & signed. In chart
declined [facility]
PLAN: Home no needs
son to transport
[2025-04-25] MEDS: SAMSCA 15 MG PO (13:18)
[2025-04-25 13:38] VITALS: BP 122/72
== END 2025-04-25 13:46 | disposition home or self-care (01) | DRG 644 ==
LOC: 3 WEST ACU 18:37
PROVIDERS: Clinical Nurse Specialist Family Health; Emergency Medicine; ADMITTING PHYSICIAN Internal Medicine; ATTENDING PHYSICIAN Hospitalist; EMERGENCY PHYSICIAN Emergency Medicine; FAMILY PHYSICIAN Physician Assistant Medical; OTHER PHYSICIAN Internal Medicine Nephrology
DX: E22.2 Syndrome of inappropriate secretion of antidiuretic hormone (principal); F10.939 Alcohol use, unspecified with withdrawal, unspecified; I10 Essential (primary) hypertension; E78.00 Pure hypercholesterolemia, unspecified; Z87.891 Personal history of nicotine dependence; Z90.49 Acquired absence of other specified parts of digestive tract; Z79.899 Other long term (current) drug therapy
CPT/HCPCS: 71046; 80048; 80053; 80306; 80307; 81003; 82010; 82077; 82533; 82977; 83735; 83930; 83935; 84100; 84300; 84443; 85025; 85610; 85730; 93005; 97162; 99285